=== PATIENT | female | born 1970 | race African-American/Black ===

== ENCOUNTER 2017-08-06 14:45 | Emergency (ER) | payer SELFPAY ==
[~2017-08-06] VITALS: Ht 172.7 cm; Wt 93.0 kg
[2017-08-06] MEDS ORDERED: KETOROLAC 60MG/2ML VIAL IM ONE (16:00)
[2017-08-06 17:47] VITALS: BP 149/79
== END 2017-08-06 17:50 | disposition home or self-care (01) ==
LOC: ER 15:56
DX: M54.31 Sciatica, right side (principal); F17.200 Nicotine dependence, unspecified, uncomplicated; I10 Essential (primary) hypertension
CPT/HCPCS: 73502; 81025; 96372; 99284; J1885